=== PATIENT | female | born 1955 | race Caucasian/White ===

== ENCOUNTER 2020-04-05 08:14 | Outpatient (REF) | payer OTHER, SELFPAY | END 2020-04-05 08:15 | disposition home or self-care (01) | LOC: HO.LAB 08:14 | PROVIDERS: PCP Internal Medicine; Visit Provider Internal Medicine | DX: Z20.828 Contact with and (suspected) exposure to other viral communicable diseases (principal) | CPT/HCPCS: U0003 ==

== ENCOUNTER 2020-04-28 07:45 | Outpatient (REF) | payer OTHER, SELFPAY | END 2020-04-28 07:46 | disposition home or self-care (01) | LOC: HO.LAB 07:45 | PROVIDERS: PCP Internal Medicine; Visit Provider Internal Medicine | DX: Z20.828 Contact with and (suspected) exposure to other viral communicable diseases (principal) | CPT/HCPCS: C9803; U0003 ==

== ENCOUNTER 2020-05-25 10:14 | Outpatient (REF) | payer OTHER, SELFPAY | END 2020-05-25 10:15 | disposition home or self-care (01) | LOC: HO.LAB 10:14 | PROVIDERS: Visit Provider Internal Medicine | DX: Z20.828 Contact with and (suspected) exposure to other viral communicable diseases (principal) | CPT/HCPCS: C9803; U0003 ==

== ENCOUNTER 2020-06-07 08:34 | Outpatient (REF) | payer OTHER, SELFPAY | END 2020-06-07 08:35 | disposition home or self-care (01) | LOC: HO.LAB 08:34 | PROVIDERS: Visit Provider Internal Medicine | DX: Z20.822 Contact with and (suspected) exposure to COVID-19 (principal) | CPT/HCPCS: 36415; C9803; U0003 ==

== ENCOUNTER → 2020-06-16 08:30 | Outpatient (BNVA) | payer OTHER, SELFPAY | PROVIDERS: PCP Internal Medicine; Visit Provider Internal Medicine Endocrinology, Diabetes & Metabolism | DX: Z76.89 Persons encountering health services in other specified circumstances (principal) ==

== ENCOUNTER 2020-06-22 09:10 | Outpatient (REF) | payer OTHER, SELFPAY ==
[2020-06-22 09:33] LABS: MANUAL DIFF FLAG NO
[2020-06-22 09:38] LABS: Basophils Percent Auto 0.5 % (0-2); Eosinophils Absolute Auto 0.1 X10*3/uL (0.0-0.4); Eosinophils Percent Auto 0.9 % (0-4); Hematocrit 44.9 % (37-47); Hemoglobin 14.2 g/dl (12.0-16.0); Imm Gran Abs Auto 0.01 X10*3/uL (0.00-0.03); Imm Gran Pct Auto 0.2 % (0.0-0.4); Lymphocytes Absolute Auto 2.1 X10*3/uL (1.2-4.9); Lymphocytes Percent Auto 33.4 % (20-40); Mean Corpuscular HGB Conc 31.6 g/dl (31.0-35.0); Mean Corpuscular Volume 94.9 fL (80-98); Monocytes Absolute Auto 0.5 X10*3/uL (0.1-1.2); Monocytes Percent Auto 7.5 % (2-11); Neutrophils Absolute Auto 3.7 X10*3/uL (2.0-8.3); Neutrophils Percent Auto 57.5 % (45-73); Platelet Count 385 X10*3/uL (160-400); Red Blood Count 4.73 X10*6/uL (4.20-5.50); White Blood Count 6.4 X10*3/uL (4.8-10.8)
[2020-06-22 10:02] LABS: Anion Gap 15 (12-20); Blood Urea Nitrogen 13 mg/dL (9-16); Carbon Dioxide 27 mmol/L (22-29); Chloride 105 mmol/L (96-108); Cholesterol 233 mg/dL; Estimated Glomerular Filt Rate > 60; Glucose Fasting 99 mg/dL (60-99); HDL Cholesterol 31 mg/dL; LDL Cholesterol Calculated 151 mg/dl; Potassium 4.2 mmol/l (3.3-5.1); Sodium 143 mmol/L (135-145); Triglycerides 256 mg/dL
[2020-06-22 10:26] LABS: Free T4 (Free Thyroxine) 1.01 ng/dL (0.71-1.85)
[2020-06-22 10:33] LABS: Thyroid Stimulating Hormone 0.85 uIU/mL (0.32-4.0)
[2020-06-23 04:53] LABS: LDL Cholesterol Direct 154 mg/dL (<100)
[2020-06-28 04:41] LABS: Lipoprotein A <10 nmol/L (<75)
[2020-06-28 08:32] LABS: Apolipoprotein B 161 mg/dL (<90)
== END 2020-06-22 09:11 | disposition home or self-care (01) ==
LOC: HO.LAB 09:10
PROVIDERS: Absent Provider Internal Medicine Endocrinology, Diabetes & Metabolism; PCP Internal Medicine; Visit Provider Nurse Practitioner Family
DX: I10 Essential (primary) hypertension (principal); E78.00 Pure hypercholesterolemia, unspecified; E78.2 Mixed hyperlipidemia
CPT/HCPCS: 36415; 80048; 80061; 82172; 83695; 83721; 84439; 84443; 85025

== ENCOUNTER 2020-06-22 10:14 | Outpatient (REF) | payer OTHER, SELFPAY | END 2020-06-22 10:15 | disposition home or self-care (01) | LOC: HO.LAB 10:14 | PROVIDERS: PCP Internal Medicine; Visit Provider Internal Medicine | DX: Z20.822 Contact with and (suspected) exposure to COVID-19 (principal) | CPT/HCPCS: 36415; C9803; U0003 ==

== ENCOUNTER → 2020-08-09 08:48 | Outpatient (REF) | payer OTHER, SELFPAY | LOC: HO.SL 08:48 | PROVIDERS: PCP Internal Medicine; Visit Provider Internal Medicine | DX: Z13.89 Encounter for screening for other disorder (principal) ==

== ENCOUNTER 2020-10-07 10:30 | Outpatient (REF) | payer OTHER, SELFPAY ==
[2020-10-07 11:04] LABS: COVID-19 Test Negative (Negative); IDNOW Serial# 55D5AD1C
== END 2020-10-07 10:31 | disposition home or self-care (01) ==
LOC: HO.LAB 10:30
PROVIDERS: Visit Provider Internal Medicine
DX: Z20.822 Contact with and (suspected) exposure to COVID-19 (principal)
CPT/HCPCS: 36415; 87635; C9803

== ENCOUNTER 2021-02-10 08:39 | Outpatient (REF) | payer OTHER, SELFPAY ==
[2021-02-10 09:50] LABS: MANUAL DIFF FLAG NO
[2021-02-10 09:53] LABS: Basophils Percent Auto 0.2 % (0-2); Eosinophils Absolute Auto 0.1 X10*3/uL (0.0-0.4); Eosinophils Percent Auto 1.1 % (0-4); Hematocrit 45.5 % (37-47); Hemoglobin 14.7 g/dl (12.0-16.0); Imm Gran Abs Auto 0.03 X10*3/uL (0.00-0.03); Imm Gran Pct Auto 0.3 % (0.0-0.4); Lymphocytes Absolute Auto 4.4 X10*3/uL (1.2-4.9); Lymphocytes Percent Auto 43.5 % (20-40); Mean Corpuscular HGB Conc 32.3 g/dl (31.0-35.0); Mean Corpuscular Hemoglobin 29.8 pg (27.0-33.0); Mean Corpuscular Volume 92.3 fL (80-98); Mean Platelet Volume 9.7 fL (9.4-12.3); Monocytes Absolute Auto 0.8 X10*3/uL (0.1-1.2); Monocytes Percent Auto 7.7 % (2-11); Neutrophils Absolute Auto 4.7 X10*3/uL (2.0-8.3); Neutrophils Percent Auto 47.2 % (45-73); Platelet Count 370 X10*3/uL (160-400); Red Blood Count 4.93 X10*6/uL (4.20-5.50); Red Cell Distribution Width 13.8 % (11.0-16.0)
[2021-02-10 10:19] LABS: Alanine Aminotransferase 20 U/L (0-31); Albumin Level 4.1 g/dL (3.5-5.0); Alkaline Phosphatase 81 U/L (39-117); Anion Gap 14 (12-20); Aspartate Amino Transferase 21 U/L (5-31); Bilirubin Total 1.2 mg/dL (0.0-1.0); Blood Urea Nitrogen 13 mg/dL (9-16); C Reactive Protein 0.53 mg/dL (< or = 0.50); Calcium 9.8 mg/dL (8.4-10.2); Carbon Dioxide 28 mmol/L (22-29); Chloride 105 mmol/L (96-108); Estimated Glomerular Filt Rate > 60; Glucose Random 99 mg/dL (60-115); Magnesium 2.1 mg/dL (1.6-2.6); Potassium 4.5 mmol/L (3.3-5.1); Sodium 142 mmol/L (135-145); Total Protein 6.5 g/dL (6.5-8.0)
[2021-02-10 10:35] LABS: Erythrocyte Sedimentation Rate 2 MM/HR (0-20)
[2021-02-10 10:41] LABS: TSH reflex Free T4 0.81 uIU/mL (0.32-4.0); Vitamin D 25-OH Total 25.1 ng/mL (>30)
[2021-02-10 10:55] LABS: Folate 15.7 ng/mL (> or = 4.0); Vitamin B12 271 pg/mL (200-900)
== END 2021-02-10 08:40 | disposition home or self-care (01) ==
LOC: HO.LAB 08:39
PROVIDERS: PCP Internal Medicine; Visit Provider Nurse Practitioner Family
DX: M79.604 Pain in right leg (principal); M79.605 Pain in left leg
CPT/HCPCS: 36415; 80053; 82306; 82607; 82746; 83735; 84443; 85025; 85652; 86140

== ENCOUNTER 2021-03-11 10:32 | Outpatient (REF) | payer OTHER, SELFPAY ==
[2021-03-11 12:26] LABS: Cholesterol 200 mg/dL; HDL Cholesterol 27 mg/dL; LDL Cholesterol Calculated 117 mg/dl; Rheumatoid Factor < 15.0 IU/mL (<15.0); Triglycerides 283 mg/dL
[2021-03-11 12:48] LABS: Vitamin D 25-OH Total 30.2 ng/mL (>30)
== END 2021-03-11 10:33 | disposition home or self-care (01) ==
LOC: HO.LAB 10:32
PROVIDERS: PCP Internal Medicine; Visit Provider Nurse Practitioner Family
DX: M79.604 Pain in right leg (principal); M79.605 Pain in left leg; R79.89 Other specified abnormal findings of blood chemistry; E78.00 Pure hypercholesterolemia, unspecified
CPT/HCPCS: 36415; 80061; 82306; 86431

== ENCOUNTER 2021-04-06 09:33 | Outpatient (REF) | payer OTHER, SELFPAY ==
--- NOTE | 2021-04-06 09:36 | EMG_ITS ---
This is a 65-year-old woman with a history of bilateral lower extremity pain and numbness. Neurological examination is normal. IMPRESSION: Rule out peripheral neuropathy, rule out lumbar radiculopathy. Nerve conduction EMG study: Normal electrodiagnostic study of both lower extremities with no evidence of nerve entrapment or generalized peripheral neuropathy. EMG of the left L4-S1 innervated muscles showed mild chronic denervated changes in the EDV muscle suggestive of chronic L5 radiculopathy. Clinical correlation is suggested. MD AICHA Faith/SRINIVAS / [id number]
== END 2021-04-06 09:34 | disposition home or self-care (01) ==
LOC: HO.NEURO 09:33
PROVIDERS: Visit Provider Nurse Practitioner Family
DX: M79.604 Pain in right leg (principal); M79.605 Pain in left leg
CPT/HCPCS: 95886; 95912

== ENCOUNTER 2021-05-13 20:13 | Emergency (ER) | payer OTHER, MEDICAID, SELFPAY ==
[2021-05-13 21:29] VITALS: BP 132/79; PULSE 78; RESP 16; TEMP 37.1; O2SAT 97; BMI 35.2
[2021-05-14 01:07] VITALS: BP 152/72; PULSE 64; RESP 18; TEMP 36.7; O2SAT 98
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
[2021-05-14] MEDS: traMADoL HCL 50 MG TABLET PO (01:11)
== END 2021-05-14 01:30 | disposition home or self-care (01) ==
PROVIDERS: Emergency Provider Internal Medicine
DX: Z04.1 Encounter for examination and observation following transport accident (principal); M54.2 Cervicalgia
CPT/HCPCS: 99283; 99284

== ENCOUNTER 2021-06-20 08:21 | Outpatient (REF) | payer OTHER, SELFPAY ==
--- NOTE | ~2021-06-20 | XR_ITS ---
EXAMINATION: XR KNEE, LEFT CLINICAL INFORMATION: Pain in left knee COMPARISON: Left knee radiograph from 03/06/2020 TECHNIQUE: Four views of the left knee. FINDINGS: Redemonstration spurring along the superior lateral margin of the patella possibly representing a bipartite patella or sequela of remote trauma. No acute visible fracture or dislocation. Mild narrowing of the medial femorotibial compartment. Spurring of the tibial spine. Periventricular osteophytes along the superior margin of patella. Joint spaces and alignment are otherwise maintained. No large knee joint effusion. Soft tissues are unremarkable. XR/XR knee LT 4V IMPRESSION: 1. No acute visible fracture or dislocation. 2. Redemonstration spurring along the superior lateral margin of the patella possibly representing a bipartite patella or sequela of remote trauma. 3. Mild multicompartment degenerative changes.
--- NOTE | ~2021-06-20 | XR_ITS ---
EXAMINATION: XR LUMBOSACRAL SPINE CLINICAL INFORMATION: Arthropathy COMPARISON: MRI lumbar spine from 06/16/2015 TECHNIQUE: Three views of the lumbosacral spine. FINDINGS: 5 nonrib-bearing lumbar-type vertebral bodies. No acute visible fracture or dislocation. Grade 1 anterolisthesis of L5 on S1. Mild to moderate multilevel degenerative changes greatest at L5-S1 with disc space narrowing, vacuum disc phenomenon, endplate sclerosis, osteophyte formation, and facet arthropathy. Vertebral body heights and disc spaces are otherwise maintained. Posterior elements are intact. Paraspinal soft tissues are unremarkable. Visualized bowel gas is unremarkable. Pelvic phleboliths are noted. Radiopaque umbilical piercing noted. XR/XR lumbar spine 2-3V IMPRESSION: 1. No acute visible fracture or dislocation. 2. Grade 1 anterolisthesis of L5 on S1. 3. Mild to moderate multilevel degenerative changes greatest at L5-S1.
== END 2021-06-20 08:22 | disposition home or self-care (01) ==
LOC: HO.XRAY 08:21
PROVIDERS: PCP Internal Medicine; Visit Provider Nurse Practitioner Family
DX: M54.16 Radiculopathy, lumbar region (principal); M47.816 Spondylosis without myelopathy or radiculopathy, lumbar region; M54.12 Radiculopathy, cervical region; M25.562 Pain in left knee; M54.2 Cervicalgia; I10 Essential (primary) hypertension
CPT/HCPCS: 72100; 73564

== ENCOUNTER 2021-06-23 11:19 | Outpatient (REF) | payer OTHER, SELFPAY ==
[2021-06-23 11:37] LABS: COVID-19 Test Negative (Negative)
== END 2021-06-23 11:20 | disposition home or self-care (01) ==
LOC: HO.LAB 11:19
PROVIDERS: Visit Provider Internal Medicine
DX: Z20.822 Contact with and (suspected) exposure to COVID-19 (principal)
CPT/HCPCS: 87635; C9803

== ENCOUNTER 2021-07-05 11:15 | Outpatient (REF) | payer MEDICARE, OTHER, SELFPAY ==
[2021-07-05 11:33] LABS: Binax Now Covid-19 Ag Negative (Negative)
[2021-07-05 11:34] LABS: Binax Internal Control QC Valid
== END 2021-07-05 11:16 | disposition home or self-care (01) ==
LOC: HO.LAB 11:15
PROVIDERS: PCP Internal Medicine; Visit Provider Internal Medicine
DX: Z13.89 Encounter for screening for other disorder (principal)

== ENCOUNTER → 2021-07-11 08:48 | Outpatient (BNVA) | payer MEDICARE, OTHER, SELFPAY | PROVIDERS: PCP Internal Medicine; Visit Provider Physician Assistant | DX: M47.816 Spondylosis without myelopathy or radiculopathy, lumbar region (principal); M54.16 Radiculopathy, lumbar region; M25.562 Pain in left knee | CPT/HCPCS: 99202 ==

== ENCOUNTER 2021-07-21 10:00 | Outpatient (RCR) | payer OTHER, SELFPAY | END 2021-07-21 10:53 | disposition home or self-care (01) | LOC: HO.PT 10:00 | PROVIDERS: PCP Internal Medicine; Visit Provider Nurse Practitioner Family | DX: M54.2 Cervicalgia (principal); M25.511 Pain in right shoulder | CPT/HCPCS: 97110; 97140; 97162; 97530 ==

== ENCOUNTER 2021-07-26 09:43 | Outpatient (REF) | payer MEDICARE, OTHER, SELFPAY ==
[2021-07-26 10:30] LABS: COVID-19 Test Negative (Negative)
== END 2021-07-26 09:44 | disposition home or self-care (01) ==
LOC: HO.LAB 09:43
PROVIDERS: Visit Provider Internal Medicine
DX: Z20.822 Contact with and (suspected) exposure to COVID-19 (principal)
CPT/HCPCS: 87635; C9803

== ENCOUNTER → 2021-08-15 08:29 | Outpatient (BNVA) | payer OTHER, MEDICARE, SELFPAY | PROVIDERS: PCP Internal Medicine; Visit Provider Nurse Practitioner Family | DX: M53.3 Sacrococcygeal disorders, not elsewhere classified (principal); M47.27 Other spondylosis with radiculopathy, lumbosacral region; M25.562 Pain in left knee; M17.12 Unilateral primary osteoarthritis, left knee; M43.17 Spondylolisthesis, lumbosacral region; F17.210 Nicotine dependence, cigarettes, uncomplicated; Z79.899 Other long term (current) drug therapy | CPT/HCPCS: 99212 ==

== ENCOUNTER 2021-08-19 10:38 | Outpatient (REF) | payer OTHER, MEDICARE, SELFPAY ==
[2021-08-19 11:06] LABS: COVID-19 Test Negative (Negative); IDNOW Serial# 08D9AD1C
== END 2021-08-19 10:39 | disposition home or self-care (01) ==
LOC: HO.LAB 10:38
PROVIDERS: Visit Provider Internal Medicine
DX: Z20.822 Contact with and (suspected) exposure to COVID-19 (principal)
CPT/HCPCS: 87635; C9803

== ENCOUNTER 2021-09-01 11:03 | Outpatient (REF) | payer OTHER, MEDICARE, SELFPAY ==
[2021-09-01 11:44] LABS: COVID-19 Test Negative (Negative)
== END 2021-09-01 11:04 | disposition home or self-care (01) ==
LOC: HO.LAB 11:03
PROVIDERS: PCP Internal Medicine; Visit Provider Internal Medicine
DX: Z20.822 Contact with and (suspected) exposure to COVID-19 (principal)
CPT/HCPCS: 87635; C9803

== ENCOUNTER 2021-09-09 13:44 | Outpatient (REF) | payer OTHER, SELFPAY ==
[2021-09-09 14:12] LABS: COVID-19 Test Negative (Negative); IDNOW Serial# 16C4AD1C
== END 2021-09-09 13:45 | disposition home or self-care (01) ==
LOC: HO.LAB 13:44
PROVIDERS: Visit Provider Internal Medicine
DX: Z20.822 Contact with and (suspected) exposure to COVID-19 (principal)
CPT/HCPCS: 87635; C9803

== ENCOUNTER 2021-09-15 09:17 | Outpatient (REF) | payer OTHER, SELFPAY ==
[2021-09-15 11:19] LABS: COVID-19 Test Negative (Negative); IDNOW Serial# 08D9AD1C
== END 2021-09-15 09:18 | disposition home or self-care (01) ==
LOC: HO.LAB 09:17
PROVIDERS: Visit Provider Internal Medicine
DX: Z20.822 Contact with and (suspected) exposure to COVID-19 (principal)
CPT/HCPCS: 87635; C9803

== ENCOUNTER 2021-09-15 11:05 | Outpatient (REF) | payer OTHER, SELFPAY ==
--- NOTE | ~2021-09-15 | MM_ITS ---
EXAMINATION: MM SCREENING DIGITAL BREAST TOMOSYNTHESIS, BILATERAL CLINICAL INFORMATION: Screening. Asymptomatic. The lifetime risk of breast cancer based on the Tyrer-Cuzick Model is 9%. COMPARISON: Mammography: 02/13/2020, 09/06/2018, 08/24/2017, 07/25/2016, 04/26/2015 TECHNIQUE: Digital breast tomosynthesis is performed in both the craniocaudal and mediolateral oblique views along with computer-aided detection (CAD). Synthesized 2D images are generated from the tomosynthesis. FINDINGS: There are scattered areas of fibroglandular density (ACR BI-RADS breast composition Category b). There are no significant masses, abnormal calcifications, or other abnormalities. Parenchymal pattern is similar to prior exams. There is no developing density or architectural abnormality. The axilla and skin contours are unremarkable. No significant changes. MM/MM tomosynthesis screening BI IMPRESSION: No mammographic evidence of malignancy. ASSESSMENT: BI-RADS 1: Negative RECOMMENDATION: Routine annual mammography screening. This patient's information was entered into a reminder system with a target due date for their next mammogram.
== END 2021-09-15 11:06 | disposition home or self-care (01) ==
LOC: HO.MAMMO 11:05
PROVIDERS: Visit Provider Internal Medicine
DX: Z12.31 Encounter for screening mammogram for malignant neoplasm of breast (principal)
CPT/HCPCS: 77063; 77067

== ENCOUNTER 2021-09-28 10:00 | Outpatient (RCR) | payer OTHER, MEDICARE, SELFPAY ==
--- NOTE | 2021-09-01 10:57 | MHC.PT.EP ---
[facility] [place] [facility] [place] [facility] [place] [facility] [address] Dolly Doe [address] [phone] F: [phone] F: [phone] F: [phone] F: [phone] Physical Therapy Plan of Care Date of Evaluation: 09/01/21 Date of Surgery: Diagnosis: lumbar pain, spondylolithesis Assessment: The patient arrived reporting pain in lumbar spine, reduced trunk mobility, and reduced postural strength. She has fair posture. Grossly decreased LE strength. She is a good candidate for skilled PT. We will focus on core stabilization, neural mobilization through neural gliding, and facilitation of improved thoracic and hip mobility. Frequency and Duration: The patient will be seen 2x/week x 4 weeks Short Term Goals: 1.Pt to able to demonstrate proper sitting posture with the use of a lumbar roll to decrease aggravating factors. 2.Pt to be able to demonstrate proper posture for common leisure activities such as phone/tablet use. 3.For the patient to demonstrate proper upright sitting posture with use of the lumbar roll to improve compliance and carryover. Assistant [employer] Goals: 1.Pt to able to demonstrate proper sitting posture with the use of a lumbar roll to decrease aggravating factors. 2.Pt to be able to demonstrate proper posture for common leisure activities such as phone/tablet use. 3.For the patient to demonstrate proper upright sitting posture with use of the lumbar roll to improve compliance and carryover. 1.The patient to demonstrate proper lifting mechanics for household chore activities to show improved functional mobility. 2.The patient to report no leg or hip pain in order to show centralization of pain and reduction of lumbar derangement 3. Pt to be able to demonstrate self management of lumbar pain by demonstration of HEP. Treatment Plan: Modalities to reduce pain, spasms and effusion. Manual therapy to restore motion and function. Therapeutic exercise to improve strength and flexibility. Neuromuscular re-education for posture and balance. Therapeutic activities to return to functional activities of daily living. Electronically signed by: Chiquis Franks PT DPT Please sign and return to therapist. Thank you for your referral.
== END 2021-12-09 10:33 | disposition home or self-care (01) ==
LOC: HO.PT 10:00
PROVIDERS: PCP Internal Medicine; Visit Provider Nurse Practitioner Family
DX: M43.17 Spondylolisthesis, lumbosacral region (principal)
CPT/HCPCS: 97110; 97112; 97162; 97530

== ENCOUNTER → 2021-10-10 08:54 | Outpatient (BNVA) | payer OTHER, SELFPAY | PROVIDERS: PCP Internal Medicine; Visit Provider Nurse Practitioner Family | DX: M43.17 Spondylolisthesis, lumbosacral region (principal); M47.816 Spondylosis without myelopathy or radiculopathy, lumbar region; M54.16 Radiculopathy, lumbar region | CPT/HCPCS: 99212 ==

== ENCOUNTER 2021-10-18 19:24 | Outpatient (REF) | payer OTHER, SELFPAY ==
--- NOTE | ~2021-10-18 | MR_ITS ---
EXAMINATION: MR LUMBAR SPINE WITHOUT CONTRAST CLINICAL INFORMATION: Lumbosacral spondylolisthesis. COMPARISON: Lumbar spine radiographs from 06/20/2021. Lumbar spine MRI from 06/16/2015. TECHNIQUE: MRI of the lumbar spine was obtained using routine sequences without contrast. Limited evaluation. The patient was unable to complete the majority of the exam secondary to claustrophobia. Only sagittal T2-weighted and small order cutter imaging was obtained. FINDINGS: Mild degenerative grade 1 anterolisthesis of L5 on S1. No demonstrated overtly displaced pars interarticularis defects. Advanced degenerative disc disease at L5-S1. Moderate degenerative disc disease at T10-T11, T11-T12, and from L2-L5. Associated mild mixed Modic type discogenic endplate changes. Stable appearance of a mildly heterogeneous T2 hyperintense lesion in the L3 vertebral body suggestive of an underlying atypical hemangioma. The conus medullaris terminates at the level of T12-L1. There appears to be a disc extrusion with inferior migration at the level of L4-L5. Moderate diffuse disc bulges from L2-S1. On limited sagittal evaluation, there appears to be moderate to severe spinal canal stenosis at L4-L5. There are also appear to be moderate spinal canal stenoses at L3-L4 and L5-S1. Mild spinal canal stenosis at L2-L3. Moderate to severe neural foraminal stenoses from L3-S1 (worst at L5-S1). There is a left subarticular disc protrusion at T10-T11. Perineural cyst within the left T11-T12 neural foramen. AXIAL SPINAL LEVELS: No axial imaging obtained. MR/MR lumbar spine wo con IMPRESSION: Limited evaluation. The patient was only able to tolerate sagittal T2-weighted imaging. Within the limitations of this exam, there is moderate multilevel degenerative spondyloarthropathy of the lumbar spine as described in detail above. Most notably, there is a disc extrusion at L4-L5 that appears to lead to severe spinal canal stenosis at this level. Moderate spinal canal stenoses at L3-L4 and L5-S1. Mild spinal canal stenosis at L2-L3. Moderate to severe neural foraminal stenoses from L3-S1 (worst at L5-S1). There appears to be degenerative grade 1 anterolisthesis of L5 on S1. No demonstrated overtly displaced pars interarticularis defects. Overall, degenerative changes are moderately progressed compared to 2016.
== END 2021-10-18 19:25 | disposition home or self-care (01) ==
LOC: HO.MRI 19:24
PROVIDERS: Visit Provider Nurse Practitioner Family
DX: M43.17 Spondylolisthesis, lumbosacral region (principal); M47.816 Spondylosis without myelopathy or radiculopathy, lumbar region; M54.16 Radiculopathy, lumbar region
CPT/HCPCS: 72148

== ENCOUNTER → 2021-10-27 11:09 | Outpatient (BNVA) | payer OTHER, SELFPAY | PROVIDERS: PCP Internal Medicine; Visit Provider Nurse Practitioner Family | DX: M48.061 Spinal stenosis, lumbar region without neurogenic claudication (principal) ==

== ENCOUNTER 2021-12-30 11:27 | Emergency (ER) | payer OTHER, SELFPAY ==
[2021-12-30 11:28] VITALS: BP 202/82; PULSE 78; RESP 18; TEMP 36.8; O2SAT 95; BMI 37.0
--- NOTE | 2021-12-30 11:31 | ECG_ITS ---
Test Reason : dizziness Blood Pressure : / mmHG Vent. Rate : 074 BPM Atrial Rate : 074 BPM P-R Int : 170 ms QRS Dur : 084 ms QT Int : 376 ms P-R-T Axes : 058 -21 011 degrees QTc Int : 417 ms Normal sinus rhythm Minimal voltage criteria for LVH, may be normal variant ( R in aVL ) Possible Anterior infarct , age undetermined Abnormal ECG No significant changes when compared with the previous EKG of 13 may 2019 Referred By: Generic ED Physician Electronically Signed By:AMADEO BIRD
[2021-12-30 11:43] LABS: Hemoglobin 13.6 g/dl (12.0-16.0); Mean Corpuscular HGB Conc 31.6 g/dl (31.0-35.0); Mean Corpuscular Hemoglobin 29.1 pg (27.0-33.0); Mean Corpuscular Volume 91.9 fL (80.0-98.0); Platelet Count 310 X10*3/uL (160-400); Red Blood Count 4.68 X10*6/uL (4.20-5.50); Red Cell Distribution Width 14.2 % (11.0-16.0); White Blood Count 9.7 X10*3/uL (4.8-10.8)
[2021-12-30 11:56] LABS: Anion Gap 12 (12-20); Blood Urea Nitrogen 11 mg/dL (9-16); Calcium 9.2 mg/dL (8.4-10.2); Carbon Dioxide 29 mmol/L (22-29); Chloride 105 mmol/L (96-108); Creatinine Clr Calc Pharmacy 92.7; Estimated Glomerular Filt Rate > 60; Glucose Random 109 mg/dL (60-115); Potassium 4.1 mmol/L (3.3-5.1); Sodium 142 mmol/L (135-145)
[2021-12-30 12:04] LABS: Troponin-I High Sensitivity < 3.5 ng/L (<3.5-17.0)
--- NOTE | 2021-12-30 14:45 | PC.NURSE ---
Pt found to be LWT. Pt encouraged to remain for evaluation regarding HTN. Pt refused, citing prolonged wait time. A and ox 4. Pt refused to return to ed for eval.
== END 2021-12-30 16:27 | disposition left against medical advice (07) ==
PROVIDERS: Emergency Provider Emergency Medicine; PCP Internal Medicine
DX: R42 Dizziness and giddiness (principal); I10 Essential (primary) hypertension; R19.7 Diarrhea, unspecified; F17.200 Nicotine dependence, unspecified, uncomplicated; E66.9 Obesity, unspecified; Z68.37 Body mass index [BMI] 37.0-37.9, adult
CPT/HCPCS: 36415; 80048; 84484; 85027; 93005; 99283

== ENCOUNTER 2022-01-17 09:22 | Outpatient (REF) | payer OTHER, SELFPAY ==
[2022-01-17 09:52] LABS: COVID-19 Test Negative (Negative); IDNOW Serial# 9DD0AD1C
== END 2022-01-17 09:23 | disposition home or self-care (01) ==
LOC: HO.LAB 09:22
PROVIDERS: Visit Provider Internal Medicine
DX: Z20.822 Contact with and (suspected) exposure to COVID-19 (principal)
CPT/HCPCS: 87635; C9803

== ENCOUNTER 2022-01-26 11:07 | Outpatient (REF) | payer OTHER, SELFPAY ==
[2022-01-26 11:49] LABS: COVID-19 Test Negative (Negative); IDNOW Serial# 16C4AD1C
== END 2022-01-26 11:08 | disposition home or self-care (01) ==
LOC: HO.LAB 11:07
PROVIDERS: Visit Provider Internal Medicine
DX: Z20.822 Contact with and (suspected) exposure to COVID-19 (principal)
CPT/HCPCS: 87635; C9803

== ENCOUNTER 2022-02-09 08:47 | Outpatient (REF) | payer OTHER, SELFPAY ==
[2022-02-09 09:38] LABS: COVID-19 Test Negative (Negative); IDNOW Serial# 55D5AD1C
== END 2022-02-09 08:48 | disposition home or self-care (01) ==
LOC: HO.LAB 08:47
PROVIDERS: Visit Provider Internal Medicine
DX: Z20.822 Contact with and (suspected) exposure to COVID-19 (principal)
CPT/HCPCS: 87635; C9803

== ENCOUNTER 2022-09-11 15:52 | Emergency (ER) | payer MEDICARE, MEDICAID, SELFPAY ==
[2022-09-11 15:55] VITALS: BP 140/76; PULSE 80; RESP 18; TEMP 36.8; O2SAT 99; BMI 35.2
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
[2022-09-11] MEDS: Bacitracin Oint 0.9 GM PACKET 1 APPL TOPICAL (16:42)
[2022-09-11] MEDS: Diphth,Pertus(ACell),Tet Adult 0.5 ML SYRINGE IM (16:43)
== END 2022-09-11 17:01 | disposition home or self-care (01) ==
PROVIDERS: Emergency Provider Student in an Organized Health Care Education/Training Program; PCP Internal Medicine
DX: S40.811A Abrasion of right upper arm, initial encounter (principal); T22.20XA Burn of second degree of shoulder and upper limb, except wrist and hand, unspecified site, initial encounter; T21.21XA Burn of second degree of chest wall, initial encounter; T31.0 Burns involving less than 10% of body surface; X58.XXXA Exposure to other specified factors, initial encounter; Y93.9 Activity, unspecified; Y92.9 Unspecified place or not applicable; Y99.9 Unspecified external cause status; Z23 Encounter for immunization; Z79.899 Other long term (current) drug therapy
CPT/HCPCS: 16025; 90471; 90715; 99282; 99284

== ENCOUNTER 2022-10-27 11:06 | Outpatient (REF) | payer OTHER, MEDICAID, SELFPAY ==
--- NOTE | ~2022-10-27 | MM_ITS ---
EXAMINATION: MM SCREENING DIGITAL BREAST TOMOSYNTHESIS, BILATERAL CLINICAL INFORMATION: Screening. Asymptomatic. The lifetime risk of breast cancer based on the Tyrer-Cuzick Model is 8%. COMPARISON: Mammography: 09/15/2021, 02/13/2020, 09/06/2018 TECHNIQUE: Digital breast tomosynthesis is performed in both the craniocaudal and mediolateral oblique views along with computer-aided detection (CAD). Synthesized 2D images are generated from the tomosynthesis. FINDINGS: There are scattered areas of fibroglandular density (ACR BI-RADS breast composition Category b). There are no significant masses, abnormal calcifications, or other abnormalities. No developing density or architectural abnormality. There are stable calcifications central mid 9:30 right breast. The axilla are unremarkable. No significant changes. MM/MM tomosynthesis screening BI IMPRESSION: No mammographic evidence of malignancy. ASSESSMENT: BI-RADS 2: Benign RECOMMENDATION: Routine annual mammography screening. This patient's information was entered into a reminder system with a target due date for their next mammogram.
== END 2022-10-27 11:07 | disposition home or self-care (01) ==
LOC: HO.MAMMO 11:06
PROVIDERS: PCP Internal Medicine; Visit Provider Internal Medicine
DX: Z12.31 Encounter for screening mammogram for malignant neoplasm of breast (principal)
CPT/HCPCS: 77063; 77067

== ENCOUNTER 2022-11-08 08:05 | Outpatient (REF) | payer OTHER, MEDICAID, SELFPAY ==
[2022-11-08 08:20] LABS: MANUAL DIFF FLAG NO
[2022-11-08 08:55] LABS: Basophils Percent Auto 0.3 % (0-2); Eosinophils Absolute Auto 0.2 X10*3/uL (0.0-0.4); Eosinophils Percent Auto 1.6 % (0-4); Hematocrit 46.7 % (37.0-47.0); Hemoglobin 14.7 g/dl (12.0-16.0); Imm Gran Abs Auto 0.04 X10*3/uL (0.00-0.03); Imm Gran Pct Auto 0.4 % (0.0-0.4); Lymphocytes Absolute Auto 3.2 X10*3/uL (1.2-4.9); Lymphocytes Percent Auto 33.7 % (20-40); Mean Corpuscular HGB Conc 31.5 g/dl (31.0-35.0); Mean Corpuscular Volume 92.1 fL (80.0-98.0); Mean Platelet Volume 9.6 fL (9.4-12.3); Monocytes Absolute Auto 0.8 X10*3/uL (0.1-1.2); Monocytes Percent Auto 8.2 % (2-11); Neutrophils Absolute Auto 5.3 x10*3/uL (2.0-8.3); Neutrophils Percent Auto 55.8 % (45-73); Platelet Count 370 X10*3/uL (160-400); Red Blood Count 5.07 X10*6/uL (4.20-5.50); Red Cell Distribution Width 14.5 % (11.0-16.0); White Blood Count 9.5 X10*3/uL (4.8-10.8)
[2022-11-08 09:27] LABS: Estimated Average Glucose 105 mg/dL; Hemoglobin A1c % 5.3 %
[2022-11-08 09:32] LABS: Alanine Aminotransferase 27 U/L (0-31); Albumin Level 4.2 g/dL (3.5-5.0); Alkaline Phosphatase 82 U/L (39-117); Anion Gap 12 (12-20); Aspartate Amino Transferase 19 U/L (5-31); Bilirubin Total 0.7 mg/dL (0.0-1.0); Blood Urea Nitrogen 15 mg/dL (9-16); Calcium 9.8 mg/dL (8.4-10.2); Carbon Dioxide 29 mmol/L (22-29); Chloride 105 mmol/L (96-108); Cholesterol 230 mg/dL; Estimated Glomerular Filt Rate > 60; Glucose Random 106 mg/dL (60-115); HDL Cholesterol 31 mg/dL; LDL Cholesterol Calculated 144 mg/dl; Potassium 4.3 mmol/L (3.3-5.1); Sodium 142 mmol/L (135-145); Triglycerides 275 mg/dL
[2022-11-08 10:00] LABS: Folate 13.1 ng/mL (> or = 4.0); Free T4 (Free Thyroxine) 0.94 ng/dL (0.71-1.85); Thyroid Stimulating Hormone 1.18 uIU/mL (0.32-4.0); Vitamin B12 340 pg/mL (200-900); Vitamin D 25-OH Total 40.6 ng/mL (>30)
[2022-11-08 10:40] LABS: Appearance Urine Clear; Color Urine Yellow; Glucose Urine UA Negative (Negative); Leukocyte Esterase Urine Negative (Negative); Nitrite Urine Negative (Negative); Specific Gravity - Urine 1.015 (1.005-1.025); Urine Blood Negative (Negative); Urine Ketones Negative (Negative); Urine Protein Negative (Neg-Trace)
[2022-11-08 10:46] LABS: Bacteria Urine None Seen (None Seen); Hyaline Casts Urine 0-2 /LPF (0-2); WBC Urine 0-5 /HPF (0-5)
== END 2022-11-08 08:06 | disposition home or self-care (01) ==
LOC: HO.LAB 08:05
PROVIDERS: PCP Internal Medicine; Visit Provider Internal Medicine
DX: Z12.11 Encounter for screening for malignant neoplasm of colon (principal); E78.00 Pure hypercholesterolemia, unspecified; R73.02 Impaired glucose tolerance (oral); E55.9 Vitamin D deficiency, unspecified
CPT/HCPCS: 36415; 80053; 80061; 81001; 82306; 82607; 82746; 83036; 84439; 84443; 85025

== ENCOUNTER 2022-12-11 15:35 | Outpatient (AMB) | payer MEDICARE, MEDICAID, SELFPAY ==
[2022-12-11 15:39] VITALS: BP 144/70; PULSE 77; O2SAT 97; BMI 37.5
--- NOTE | 2022-12-11 15:39 | MHC.PC.OV ---
Vital Signs 12/11/22 15:39 Height 5 ft Weight 192 lb BMI 37.5 BP 144/70 H Blood Pressure Location Lt brachial Position Sitting Pulse 77 Pulse Source Pulse Oximeter Pulse Oximetry (%) 97 Oxygen Delivery Method Room Air Intake Visit Reasons: 2 month f/u Allergies crab Allergy (Severe, Verified 12/11/22 15:39) RASH,HIVES amoxicillin Allergy (Unknown, Verified 12/11/22 15:39) yeast infection Medication List - Last Reconciled 12/11/22 by Kiya Huber MD amlodipine 10 mg PO DAILY atorvastatin 20 mg PO BEDTIME baclofen 10 mg PO BID PRN diclofenac sodium 1% (Voltaren Arthritis Pain) 2 grams topical QID fenofibrate 160 mg PO DAILY 90 days gabapentin 200 mg (2 x 100 mg) PO BEDTIME garlic 300 mg PO DAILY lidocaine 5% 1 patch topical DAILY melatonin 5 mg PO BEDTIME multivitamin 1 tab PO DAILY ropinirole 0.25 mg PO BEDTIME varenicline (Chantix Starting Month Box) PO PER PKG DIR varenicline (Chantix Continuing Month Box) 1 mg PO BID Tobacco use date assessed: 10/31/22 Fall risk assessment: No Falls in past year Last assessed Fall Risk: 12/11/22 Dental Screening Dental Screen Date: 12/11/22 Did you have a dental visit in the last 12 months?: Yes Did you have a dental problem in the last 6 months where you did not have access to dental care?: No Was dental information given to patient?: Patient has dentist HPI 2 month f/u HPI Details 67-year-old obese female smoker with hypertension impaired glucose tolerance hypercholesterolemia obstructive sleep apnea and lumbar spinal stenosis coming in for follow-up last seen in October 2022 advise colonoscopy bone density patient comes in for follow-up. Patient is not sure she is taking the atorvastatin. Will send a script an. Advised to retest in 3 months. Patient states has stop smoking 2 weeks ago on Chantix and would like to have the follow-up medication. Otherwise not using the CPAP states has the fan and feels better with it but states advised patient that is not the same. [facility] Medical History (Updated 12/11/22 @ 16:25 by Kiya Huber MD) Anterolisthesis of lumbosacral spine Breast cancer screening by mammogram Shashank's disease History of spinal cord compression Hypercholesterolemia Hypertension Impaired glucose tolerance Left knee pain Lumbar spondylosis Non-toxic multinodular goiter Obesity (BMI 30-39.9) Obstructive sleep apnea Osteopenia Peripheral neuropathy Restless leg syndrome Right renal stone Sacroiliac joint dysfunction of both sides Thyroid nodule Tobacco abuse Vitamin D deficiency Vocal cord nodule Surgical History H/O gastric bypass History of bunionectomy History of section History of hemorrhoidectomy Vaginal cyst Family History Father Medical history unknown Mother Myocardial infarction Diabetes Hypertension CVD (cardiovascular disease) Brother Myocardial infarction Brother No problems noted. Brother No problems noted. Maternal Aunt Breast cancer Sister Depression Alcoholism Social History (Updated 10/31/22 @ 16:39 by Kiya Huber MD) Household Members: Spouse, Family and Children Housing: House Alcohol intake: current Alcohol intake frequency: a few times a month Patient Tobacco Use Status: Current everyday Tobacco user Tobacco use type: Cigarette Cigarettes Per Day: 6 Years Smoked: pack Q 3 days e-Cigarette/Vaping Use: Never Used Second Hand Smoke Exposure: No service: No Current occupational status: disabled Current occupation: Rt handed Cognitive needs: No Hearing needs: No Vision needs: No Questionnaire PHQ-9 Over the last 2 weeks, how often have you been bothered by any of the following problems? 1. Little interest or pleasure in doing things: not at all 2. Feeling down, depressed, or hopeless: not at all 3. Trouble falling or staying asleep, or sleeping too much: not at all 4. Feeling tired or having little energy: not at all 5. Poor appetite or overeating: not at all 6. Feeling bad about yourself - or that you are a failure or have let yourself or your family down: not at all 7. Trouble concentrating on things, such as reading the newspaper or watching television: not at all 8. Moving or speaking so slowly that other people could have noticed. Or the opposite - being so fidgety or restless that you have been moving around a lot more than usual: not at all 9. Thoughts that you would be better off or of hurting yourself in some way: not at all Total score: 0 Depression Screening Interpretation: Negative Source: Developed by Drs. Adonay Carmona, Cally Sherwood, Fernando Farrar and colleagues, with an educational anna from [employer]. Thrive Questionnaire Date Thrive assessed: 10/31/22 AUDIT C Alcohol Use Questionnaire (AUDIT-C) 1. How often do you have a drink containing alcohol?: Never Total Score: 0 Score Reviewed/Action Taken: No AME-7 AMB Questionnaire AME-7 Date AME - 7 assessed: 10/31/22 Source: Developed by Drs. Adonay Carmona, Cally Sherwood, Fernando Farrar and colleagues, with an educational anna from [employer]. Physical exam (Primary Care) Vital Signs: Last Vital Signs Pulse 77 12/11/22 15:39 BP 144/70 H 12/11/22 15:39 Pulse Ox 97 12/11/22 15:39 Oxygen Delivery Method Room Air 12/11/22 15:39 BMI result Body Mass Index 37.5 Tobacco/Smoking Status: Tobacco use Status Tobacco use date assessed 10/31/22 12/11/22 15:43 Patient Tobacco Use Status Current everyday Tobacco 12/11/22 15:43 Tobacco use type Cigarette 12/11/22 15:43 e-Cigarette/Vaping Use Never Used 12/11/22 15:43 PHQ-9: PHQ-9 Score PHQ-9: Total score 0 12/11/22 15:43 Depression Screening Interpretation: Negative Thrive Assessment: Date of Thrive Assessment Date Thrive assessed 10/31/22 12/11/22 15:43 Const General: alert; No acute distress Eyes Conjunctivae: conjunctivae normal Resp Auscultation: clear to auscultation bilaterally Cardio Rate: regular rate Rhythm: regular rhythm GI Inspection: Yes normal to inspection Extrem General: Yes normal to inspection and No edema Assessment and Plan Assessment & Plan (1) Colon cancer screening: Code(s): Z12.11 - Encounter for screening for malignant neoplasm of colon Plan: Reminded about colonoscopy (2) Spinal stenosis of lumbar region: Code(s): M48.061 - Spinal stenosis, lumbar region without neurogenic claudication (3) Tobacco abuse: Comment: stopped 12/2022 Code(s): Z72.0 - Tobacco use Plan: Strongly advised to stop! Stopped 2 weeks ago (4) Obstructive sleep apnea: Comment: CPAP at home Code(s): G47.33 - Obstructive sleep apnea (adult) (pediatric) Plan: Discussed about CPAP use . states not using (5) Obesity (BMI 30-39.9): Code(s): E66.9 - Obesity, unspecified Plan: Diet and exercise (6) Hypercholesterolemia: Code(s): E78.00 - Pure hypercholesterolemia, unspecified Plan: Avoid fried foods, chicken skin, eggs, butter margarine, pastries and meat. Be it pork or beef they have a lot of cholesterol LDL goal of less than 130 and triglyceride of less than 150 (7) Impaired glucose tolerance: Code(s): R73.02 - Impaired glucose tolerance (oral) Plan: Decrease the amount of carbohydrate intake, pasta, bread, rice and potatoes are all sugar and that is aside from all the sweet stuff, remember that fruits are good but they are Sweet also. (8) Hypertension: Code(s): I10 - Essential (primary) hypertension Qualifiers: Hypertension type: essential hypertension Qualified Code(s): I10 - Essential (primary) hypertension Plan: Continue with blood pressure medication. Decrease salt intake and exercise patient on amlodipine 10 mg once a day Orders: Orders Comprehensive Met. Panel 3 Months E78.00 - Pure hypercholesterolemia, unspecified Hemoglobin A1c 3 Months E78.00 - Pure hypercholesterolemia, unspecified Lipid Panel 3 Months E78.00 - Pure hypercholesterolemia, unspecified Medications: New varenicline (Chantix Continuing Month Box) 1 mg PO BID 56 tabs 1RF Z72.0 - Tobacco use Refilled atorvastatin 20 mg PO BEDTIME 90 tabs 2RF E78.00 - Pure hypercholesterolemia, unspecified Coding Level of Care Code Est Pt Level 4 (05775) Diagnoses Colon cancer screening Z12.11 Spinal stenosis of lumbar region M48.061 Tobacco abuse Z72.0 Obstructive sleep apnea G47.33 Obesity (BMI 30-39.9) E66.9 Hypercholesterolemia E78.00 Impaired glucose tolerance R73.02 Hypertension I10 Hypertension type: essential hypertension Additional Codes PHQ-9 - 56448 - PHQ-9 Billing: Y ([id number])
== END 2022-12-11 16:40 | disposition home or self-care (01) ==
PROVIDERS: PCP Internal Medicine; Visit Provider Internal Medicine
DX: I10 Essential (primary) hypertension (principal); E66.9 Obesity, unspecified; Z68.37 Body mass index [BMI] 37.0-37.9, adult; Z12.11 Encounter for screening for malignant neoplasm of colon; M48.061 Spinal stenosis, lumbar region without neurogenic claudication; Z72.0 Tobacco use; G47.33 Obstructive sleep apnea (adult) (pediatric); E78.00 Pure hypercholesterolemia, unspecified; R73.02 Impaired glucose tolerance (oral)
CPT/HCPCS: 99214